=== PATIENT | female | born 2000 | race Caucasian/White ===

== ENCOUNTER 2025-08-12 16:53 | Emergency (ER) | payer BC, MEDICAID ==
[~2025-08-12] VITALS: Ht 172.7 cm; Wt 60.0 kg
[2025-08-12 17:01] VITALS: BP 121/75; TEMP 36.6; O2SAT 100
[2025-08-12 17:02] VITALS: PULSE 80; RESP 12; O2SAT 100
[2025-08-12] MEDS ORDERED: SULF1TAB48 MT (22:21)
[2025-08-12] MEDS ORDERED: IBUP-1455 MT (22:21)
== END 2025-08-12 22:48 | disposition home or self-care (01) ==
LOC: ER 16:53
DX: N39.0 Urinary tract infection, site not specified (principal); R59.0 Localized enlarged lymph nodes
CPT/HCPCS: 76857; 99284